=== PATIENT | female | born 1970 | race Caucasian/White ===

== ENCOUNTER 2022-09-06 22:25 | Emergency (ER) | payer OTHER, SELFPAY ==
--- NOTE | 2022-09-06 22:28 | ED.SKABFB ---
HPI - Skin/Abscess/Foreign Bdy General Chief complaint: Animal Bite Stated complaint: Insect bite on buttocks Time Seen by Provider: 09/06/22 22:28 History of Present Illness HPI narrative: 52-year-old female patient is here with complaints of irritation to the left buttock area and she is unsure whether it was an insect bite or of a sexually transmitted disease. Patient states that she has been sexually inactive for the last 7 8 months however 2 days ago she had a new relationship and today she noticed to the lesions on her buttock. She thinks that this is the mosquito bite but wants to make sure. She denies any vaginal discharge. She does complain about itching in the rash area. Patient states that she has been smoking and is dealing with a canker sore on her lip. 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 Apparently she is under care of somebody where she has to call every morning and have her urine tested and mouth swab. Related Data Home Medications Medication Instructions Recorded Confirmed No Home Medications 09/06/22 09/06/22 Review of Systems Review of Systems: All systems reviewed & are unremarkable except as noted in HPI and below PMFSH Past Medical History Medical History (Updated 09/06/22 @ 22:42 by Lise Gomez MD) Substance abuse Social History Social History (Updated 09/06/22 @ 22:43 by Lise Gomez MD) Smoking packs per day: 1 Smoking cigarettes per day: 20.0 Smoking status: Current every day smoker Substance use: former Exam Narrative: Alert female patient who appears in no acute distress. Stable vital signs normal HEENT with a small canker sore on the right lower lip lungs are clear. Heart tones are regular. Patient has 3 urticarial lesions in the left buttock cheek area. There is no vesiculation scabbing or blistering noted. There are no open wounds. There is a small streak totally independent that appears like an urticarial streak. There are no lesions around the perineal area or in the vulva. There is no obvious vaginal discharge. Skin is warm and dry and color is normal. Patient is very anxious Course Course Emergency Course: The patient has been reassured about of the lesions being probably of a non been less insect bite. I have advised her to take the Benadryl as needed for itching. Discharge Plan Discharge Prescriptions: No Action No Home Medications Follow-up/Referrals: Kwaku,Walter Valentin MD [Primary Care Provider] -
[2022-09-06 22:32] VITALS: BP 120/66; PULSE 66; RESP 20; TEMP 36.7; O2SAT 99
[2022-09-06] MEDS: diphenhydrAMINE HCl CAP 25 MG CAPSULE PO (22:55)
== END 2022-09-06 23:04 | disposition home or self-care (01) ==
PROVIDERS: Emergency Provider Emergency Medicine; PCP Family Medicine
DX: S30.860A Insect bite (nonvenomous) of lower back and pelvis, initial encounter (principal); F17.210 Nicotine dependence, cigarettes, uncomplicated; W57.XXXA Bitten or stung by nonvenomous insect and other nonvenomous arthropods, initial encounter
CPT/HCPCS: 99283; A9270